=== PATIENT | male | born 1945 | race Caucasian/White ===

== ENCOUNTER 2017-06-22 16:52 | Emergency (ER) | payer MEDICARE, OTHER ==
[2017-06-22] MEDS ORDERED: Lidocaine 1% 10 ML MDV INJECT ONE (16:57)
[2017-06-22] MEDS ORDERED: Lidocaine 1% 20 ML MDV ONE (16:58)
--- NOTE | 2017-06-22 17:17 | EDM.PDOC ---
ED HPI GENERAL MEDICAL PROBLEM - General Chief Complaint: Laceration Stated Complaint: RIGH THIGH LACERATION Time Seen by Provider: 06/22/17 17:00 Source of Information: Reports: Patient, Family History Limitations: Reports: No Limitations - History of Present Illness INITIAL COMMENTS - FREE TEXT/NARRATIVE: 71 YO WM presents to ER with a laceration to his right thigh from a filet knife. Pt reports he was cleaning a deer when he accidentally stuck himself in the medial aspect of his right thigh. Pt denies any limited ROM. Pt applied pressure to control bleeding. Pt denies any dizziness or shortness of breath. Pt estimates minimal blood loss. Onset: Sudden Onset Date: 06/22/17 Onset Time: 16:45 Duration: Hour(s): (1) Location: Reports: Lower Extremity, Right Quality: Reports: Dull, Pressure Severity: Mild Improves with: Reports: None Worsens with: Reports: None Associated Symptoms: Reports: No Other Symptoms - Related Data Home Meds: Home Meds Amoxicillin/Clavulanate K [Augmentin 875 MG/125 MG] 1 tab PO Q12HR #20 tablet [Rx] atorvaSTATin [Lipitor] 20 mg PO BEDTIME 06/22/17 [History] traMADol [Ultram] 50 mg PO Q6H PRN #10 tablet 06/22/17 [Rx] Review of Systems - Review of Systems Review Of Systems: See Below Constitutional: Reports: No Symptoms Eyes: Reports: No Symptoms Ears: Reports: No Symptoms Nose: Reports: No Symptoms Mouth/Throat: Reports: No Symptoms Respiratory: Reports: No Symptoms Cardiovascular: Reports: No Symptoms GI/Abdominal: Reports: No Symptoms Genitourinary: Reports: No Symptoms Musculoskeletal: Reports: Leg Pain Skin: Reports: Wound (3 cm laceration to medial aspect of right thigh) ED EXAM, GENERAL - Physical Exam Exam: See Below Exam Limited By: No Limitations General Appearance: Alert, WD/WN, No Apparent Distress Nose: Normal Inspection, Normal Mucosa, No Blood Throat/Mouth: Normal Inspection, Normal Lips, Normal Teeth, Normal Gums, Normal Oropharynx, Normal Voice, No Airway Compromise Head: Atraumatic, Normocephalic Neck: Normal Inspection, Supple, Non-Tender, Full Range of Motion Respiratory/Chest: No Respiratory Distress, Lungs Clear, Normal Breath Sounds, No Accessory Muscle Use, Chest Non-Tender Cardiovascular: Normal Peripheral Pulses, Regular Rate, Rhythm, No Edema, No Gallop, No JVD, No Murmur, No Rub GI/Abdominal: Normal Bowel Sounds, Soft, Non-Tender, No Organomegaly, No Distention, No Abnormal Bruit, No Mass Back Exam: Normal Inspection, Full Range of Motion, NT Extremities: Normal Range of Motion, No Pedal Edema, Normal Capillary Refill, Leg Pain Neurological: Alert, Oriented, CN II-XII Intact, Normal Cognition, Normal Gait, Normal Reflexes, No Motor/Sensory Deficits Psychiatric: Normal Affect, Normal Mood Skin Exam: Warm, Dry, Intact, Normal Color, No Rash Lymphatic: No Adenopathy ED TRAUMA EXTREMITY PROCEDURES - Laceration/Wound Repair Right Medial Thigh Lac/Wound Length In cm: 3 Appearance: Superficial, Subcutaneous, Muscle, Linear, Clean Distal NVT: Neuro & Vascular Intact Anesthetic Type: Local Local Anesthesia - Lidocaine (Xylocaine): 1% Plain Local Anesthetic Volume: Other (8) Skin Prep: Providone-Iodine (Betadine), Saline Exploration/Debridement/Repair: Wound Explored, Explored to Base Closed With: Sutures Suture Size: 3-0 # of Sutures: 3 Sterile Dressing Applied: Provider Tetanus Status Addressed: Yes Complications: No Course - Orders/Labs/Meds Meds: Medications Discontinued Medications Generic Name Dose Route Start Last Admin Trade Name Renuka PRN Reason Stop Dose Admin Lidocaine HCl 10 ml 06/22/17 16:57 Xylocaine 1% INJECT 06/22/17 16:58 ONETIME ONE Lidocaine HCl Confirm 06/22/17 16:58 Xylocaine 1% Administered 06/22/17 16:59 Dose 20 ml .ROUTE .STK-MED ONE Departure - Departure Time of Disposition: 17:26 Disposition: Home, Self-Care 01 Condition: Good Clinical Impression: Puncture wound - injury, Laceration - Discharge Information Prescriptions: Amoxicillin/Clavulanate K [Augmentin 875 MG/125 MG] 1 tab PO Q12HR #20 tablet traMADol [Ultram] 50 mg PO Q6H PRN #10 tablet PRN Reason: Pain Instructions: Puncture Wound, [id number], Stitches, [place], or Adhesive Wound Closure, [id number], Laceration Care, Adult, [id number] Referrals: Silvina Snider [employer] [Primary Care Provider] - Forms: ED Department Discharge - Assessment/Plan Assessment:: 1. 3cm laceration to right thigh Plan: 1. discharge home 2. wound care instructions given 3. suture removal in 10-14 days 4. keep leg elevated 5. follow up with PCP for further evaluation and treatment 6. Augmentin 875 mg PO BID x 10 days due to puncture wound
[2017-06-22] MEDS ORDERED: Lidocaine 1% 20 ML MDV INJECT ONE (18:17)
== END 2017-06-22 17:45 | disposition home or self-care (01) ==
LOC: KA.ED 16:52
DX: S71.111A Laceration without foreign body, right thigh, initial encounter (principal); W26.0XXA Contact with knife, initial encounter
CPT/HCPCS: 12002; 99283